=== PATIENT | female | born 1990 | race Two or more races ===

== ENCOUNTER 2021-08-17 16:24 | Emergency (ER) | payer OTHER ==
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
[2021-08-17] MEDS ORDERED: HYDROmorphone 1 MG/ML CARPUJECT IM STA (17:01)
--- NOTE | 2021-08-17 17:28 | XRAY Report ---
PROCEDURE: Ribs w/PA Chest RT INDICATIONS: posterior rib pain TECHNIQUE: 2 views of the right ribs were acquired, along with a single view chest. COMPARISON: None FINDINGS: Surgical changes and devices: None. Bones and chest wall: No fractures or dislocations. No suspicious bony lesions. Overlying soft tis sues appear unremarkable. Lungs and pleura: No pleural effusions or pneumothorax. Lungs appear clear. Mediastinum: Mediastinal contours appear normal. Heart size is normal. IMPRESSION: No displaced rib fracture. No acute cardiopulmonary disease process. Reviewed by: Samantha Dyson MD, PhD on 08/17/2021 4:27 PM AKDT Approved by: Samantha Dyson MD, PhD on 08/17/2021 4:27 PM AKDT Station ID: [id number]
[2021-08-17 18:01] VITALS: BP 108/66
== END 2021-08-17 18:02 | disposition home or self-care (01) ==
LOC: ED 16:24
DX: R07.81 Pleurodynia (principal); R07.89 Other chest pain; M54.6 Pain in thoracic spine; V43.52XA Car driver injured in collision with other type car in traffic accident, initial encounter; Y92.410 Unspecified street and highway as the place of occurrence of the external cause
CPT/HCPCS: 71101; 96372; 99283; 99284; J1170

== ENCOUNTER 2021-10-17 08:00 | Outpatient (CLI) | payer OTHER | END 2021-10-17 23:59 | LOC: LAB 08:00 | PROVIDERS: ATTEND Family Medicine | DX: R05.9 Cough, unspecified (principal); R50.9 Fever, unspecified; Z20.822 Contact with and (suspected) exposure to COVID-19 ==

== ENCOUNTER 2022-02-25 19:59 | Outpatient (CLI) | payer OTHER ==
--- NOTE | 2022-02-25 21:21 | XRAY Report ---
PROCEDURE: Knee 3 View RT INDICATIONS: RIGHT KNEE PAIN TECHNIQUE: 3 views of the right knee were acquired. COMPARISON: None. FINDINGS: Bones: No fractures or dislocations. Joint spaces appear preserved. No suspicious bony lesions. Soft tissues: There is a small joint effusion. No suspicious soft tissue calcifications. IMPRESSION: 1. No acute bony abnormality. 2. Small joint effusion. Reviewed by: Otoniel Angel MD on 02/25/2022 9:20 PM PDT Approved by: Otoniel Angel MD on 02/25/2022 9:20 PM PDT Station ID: [id number]
--- NOTE | 2022-02-25 21:22 | XRAY Report ---
PROCEDURE: Ankle 3 View LT INDICATIONS: LEFT ANKLE PAIN TECHNIQUE: 3 views of the ankle were acquired. COMPARISON: None. FINDINGS: Bones: No fractures or dislocations. Ankle mortise is normally aligned. No suspicious bony lesions . Soft tissues: No tibiotalar joint effusion. Achilles tendon appears intact. IMPRESSION: 1. No acute bony abnormality. Reviewed by: Otoniel Angel MD on 02/25/2022 9:21 PM PDT Approved by: Otoniel Angel MD on 02/25/2022 9:21 PM PDT Station ID: [id number]
== END 2022-02-25 20:00 | disposition home or self-care (01) ==
LOC: DI 19:59
PROVIDERS: ATTEND Family Medicine
DX: M25.561 Pain in right knee (principal); M25.572 Pain in left ankle and joints of left foot; M25.461 Effusion, right knee

== ENCOUNTER 2024-02-27 13:26 | Outpatient (CLI) | payer OTHER ==
--- NOTE | 2024-02-27 17:46 | Ultrasound Report ---
PROCEDURE: OB Anatomy Scan INDICATIONS: SUPERVISION OF OUTSIDE/PRIOR DATING DATA: Last menstrual period (LMP): 10/03/2023. LMP-based estimated date of delivery (PASCALE): 07/09/2024. First dating scan (date and location): 02/27/2024. Estimated date of delivery (PASCALE) from first dating scan: 07/09/2024. TECHNIQUE: Real-time scanning was performed of the fetus, with image documentation and biometric measurements. COMPARISON: None. FINDINGS: General: A single living intrauterine gestation is present. Presentation: Vertex Placenta: Placental position is posterior, placental edge is within 1 cm of the internal os. Amniotic fluid index: 13.6 cm, within normal limits for gestational age. heart rate: 166 beats per minute. Maternal cervical canal: 5.8 cm long; normal length is 2.5 cm or more. biometrics: Biparietal diameter: 5.03, 21 weeks and 2 days, 58.6% Head circumference: 19.17 cm, 21 weeks and 3 days, 59.9% Abdominal circumference: 17.64 cm, 22 weeks and 4 days, 87.4% Femur length: 3.6 cm, 21 weeks and 3 days, 55.7% Estimated gestational age from initial scan: 21 weeks Composite gestational age from present scan: 21 weeks and 4 days Estimated weight and percentile: 463 g, 89.7% Measurement variability in biometric dating: +/- 10 days from 12-20 weeks gestation, +/- 2 weeks from 20-30 weeks gestation, +/- 3 weeks at 30 weeks gestation or later. Anatomic survey: Neuro: Ventricles are normal at less than 10 mm. Cisterna magna is normal at 3-11 mm. Cerebellum is normal in size and morphology. Nuchal skin fold: Normal at less than 6 mm between 14 and 20 weeks gestational age. Face: Profile and nose/lips within normal limits Spine: No evidence for spina bifida. Heart: 4-chambered heart is present. LVOT is within normal limits. RVOT is not well seen on this sin gle imaging plane, although this is probably normal on cine Diaphragm: Diaphragm is intact. Stomach: Left-sided stomach is present. Kidneys: No hydronephrosis. Normal is less than 5 mm in 2nd trimester, less than 7 mm in 3rd trimester. Cord: 3 vessel cord has orthotopic insertion. Bladder: Normal in size. Extremities: All 4 extremities are visualized. IMPRESSION: Low lying placenta within 1 cm of the internal os. RVOT is not well seen on a single image, probably normal on the cine, Consider follow-up for the above findings. Living intrauterine gestation at 21 weeks. EFW is at the upper limit of normal at 90%. Reviewed by: Anirudh Shaw MD on 02/27/2024 5:45 PM PDT Approved by: Anirudh Shaw MD on 02/27/2024 5:45 PM PDT Station ID: [id number]
== END 2024-02-27 13:27 | disposition home or self-care (01) ==
LOC: DI 13:26
PROVIDERS: ATTEND Nurse Practitioner Obstetrics & Gynecology
DX: Z36.89 Encounter for other specified antenatal screening (principal); O44.42 Low lying placenta NOS or without hemorrhage, second trimester; Z3A.21 21 weeks gestation of pregnancy

== ENCOUNTER 2024-02-27 15:16 | Emergency (ER) | payer OTHER ==
[2024-02-27 15:38] VITALS: BP 101/58; O2SAT 100
--- NOTE | 2024-02-27 16:06 | ED Physician Documentation ---
History of Present Illness - Stated complaint Stated Complaint: 21WKS/LT RIB PX - Chief complaint Chief Complaint: Back Pain - History obtained from History obtained from: Patient - History of Present Illness Timing: Today Pain level max: 8 Pain level now: 8 - Additonal information Additional information: Patient is a 33-year-old female, 1, para 0, approximately 21 weeks who states that she was coughing today when she felt a pop in her left ribs. Now complaining of rib pain. Worse with movement, better with rest. No fevers. No chills. No vomiting. No diarrhea. No vaginal bleeding or discharge. She had a normal ultrasound reportedly just prior to arrival in the emergency department. Patient states she has not taken anything for the pain in the ribs. Review of Systems Constitutional: denies: Fever, Chills GI: denies: Nausea, Vomiting, Diarrhea : denies: Dysuria, Frequency, Hesitancy Skin: denies: Rash Musculoskeletal: denies: Neck pain, Back pain PD PAST MEDICAL HISTORY - Past Medical History Past Medical History: No - Past Surgical History Past Surgical History: No - Present Medications Home Medications: Ambulatory Orders Medication Instructions Recorded Confirmed HYDROcod/ACETAM 5/325 [[place] 5/325] 1 - 2 ea PO Q6H PRN #14 tablet 02/27/24 Levothyroxine [Synthroid] 25 mcg PO QDAC 02/27/24 02/27/24 Ondansetron HCl 4 mg PO Q4HR PRN 02/27/24 02/27/24 - Allergies Allergies/Adverse Reactions: Allergies Allergy/AdvReac Type Severity Reaction Status Date / Time No Known Drug Allergies Allergy Verified 02/27/24 15:36 - Social History Does the pt smoke?: No Smoking Status: Never smoker Does the pt drink ETOH?: No Does the pt have substance abuse?: No - Immunizations Immunizations are current?: No Immunizations: TDAP >10years/unknown PD ED PE NORMAL - Vitals Vital signs reviewed: Yes - General General: Alert and oriented X 3, No acute distress - HEENT HEENT: PERRL, Moist mucous membranes - Neck Neck: Supple, no meningeal sign - Cardiac Cardiac: RRR - Respiratory Respiratory: No respiratory distress, Clear bilaterally, Other (Tender palpation over the left posterior lateral rib, approximately 9 and 10. No crepitus. No ecchymosis. Otherwise atraumatic exam of the back and chest wall.) - Abdomen Abdomen: Soft, Non tender, Non distended - Derm Derm: Warm and dry - Neuro Neuro: Alert and oriented X 3 - Psych Psych: Normal mood, Normal affect Results - Vitals Vitals: Vital Signs - 24 hr 02/27/24 15:30 Temperature 36.9 C Heart Rate 69 Respiratory 15 Rate Blood Pressure 101/58 L O2 Saturation 100 Oxygen O2 Source Room air PD Medical Decision Making - ED course Complexity details: considered differential, d/w patient ED course: 33-year-old female with left rib pain after coughing. She is approximately 21 weeks , therefore no imaging was performed. No evidence of pneumothorax. Will prescribe pain medication for home. She is well-appearing, nontoxic. Afebrile. Abdomen is soft, nontender nondistended. She just had a normal ultrasound prior to checking into the emergency department. No indication to repeat this at this time. No indication for laboratory testing. No vomiting. No diarrhea. No urinary symptoms. Patient counseled regarding signs and symptoms for which I believe and urgent re-evaluation would be necessary. Patient with good understanding of and agreement to plan and is comfortable going home at this time This document was made in part using voice recognition software. While efforts are made to proofread this document, sound alike and grammatical errors may occur. Departure - Departure Disposition: 01 Home, Self Care Clinical Impression: Rib pain on left side Condition: Good Instructions: ED Contusion Vs Minor Fx Rib Follow-Up: your,doctor in 1 week [Other] - Within 1 week Prescriptions: HYDROcod/ACETAM 5/325 [[place] 5/325] 1 - 2 ea PO Q6H PRN #14 tablet PRN Reason: Pain Comments: As we discussed it is likely that you have a small cracked rib from the coughing. A prescription was sent to [facility] in [place] for pain. Please follow-up with your OB for further care. Please return if you worsen. This may take several weeks to fully heal I am prescribing a short course of narcotic pain medication for you. These are potentially dangerous and addictive medications that should be used carefully. These medications may constipate you. Take an cwve-xjv-icqekjc stool softener (docusate) twice daily with plenty of water while taking these medications. If you go 24 hours without a bowel movement, take dgmv-ano-sxbfroe miralax, per package instructions. Do not drink or drive while taking these medications. If you received narcotic or sedating medications while in the emergency department, do not drive for 24 hours. Store this medication in a safe, secure place and out of reach of children. It is a violation of federal law to give or sell this medication to another person or to use in a manner other than prescribed. The ED will not refill narcotic prescriptions, including prescriptions lost or stolen. To dispose of unwanted medications: 1. [facility] at [address] in [place] has a medication drop box. They accept prescription medications (in pill form) Saturday through Saturday 9:00 a.m. to 5:00 p.m. 2. [facility] [employer] accepts prescription medications (in pill form only) for disposal year round. Call for more information. 3. Contact the [facility] for the next [facility] sponsored prescription drug collection event. , [phone], or [phone]; Discharge Date/Time: 02/27/24 16:22
[2024-02-27] MEDS: HYDROcod/ACETAM 5/325 MG TABLET PO STA (16:10)
== END 2024-02-27 16:22 | disposition home or self-care (01) ==
LOC: ED 15:16
DX: O99.891 Other specified diseases and conditions complicating pregnancy (principal); R05.9 Cough, unspecified; R07.81 Pleurodynia; Z3A.21 21 weeks gestation of pregnancy; O44.42 Low lying placenta NOS or without hemorrhage, second trimester; Z36.89 Encounter for other specified antenatal screening
CPT/HCPCS: 76811; 99283; A9270

== ENCOUNTER 2024-04-01 10:21 | Outpatient (CLI) | payer OTHER ==
[2024-04-01 11:37] LABS: HCT - HEMATOCRIT 32.1 % (37.0-47.0); HGB - HEMOGLOBIN 10.3 g/dL (12.0-16.0); MEAN CORPUSCULAR HEMOGLOBIN 30.8 pg (27.0-31.0); MEAN CORPUSCULAR HGB CONC 32.1 g/dL (32.0-36.0); MEAN CORPUSCULAR VOLUME 96.1 fL (81.0-99.0); RED BLOOD COUNT 3.34 10^6/uL (4.20-5.40); WHITE BLOOD COUNT 8.8 x10^3/uL (4.8-10.8)
[2024-04-01 12:07] LABS: THYROID STIMULATING HORMONE 0.69 uIU/mL (0.34-5.60)
== END 2024-04-01 10:22 | disposition home or self-care (01) ==
LOC: LAB 10:21
PROVIDERS: ATTEND Nurse Practitioner Obstetrics & Gynecology
DX: O99.280 Endocrine, nutritional and metabolic diseases complicating pregnancy, unspecified trimester (principal); Z36.9 Encounter for antenatal screening, unspecified
CPT/HCPCS: 36415; 82950; 84439; 84443; 85027

== ENCOUNTER 2024-04-06 08:08 | Outpatient (CLI) | payer OTHER ==
[2024-04-06 09:21] LABS: GTT GLUCOSE,FASTING 89 mg/dL (74-109)
== END 2024-04-06 08:09 | disposition home or self-care (01) ==
LOC: LAB 08:08
PROVIDERS: ATTEND Nurse Practitioner Obstetrics & Gynecology
DX: O99.810 Abnormal glucose complicating pregnancy (principal)
CPT/HCPCS: 36415; 82951; 82952

== ENCOUNTER 2024-05-05 13:29 | Outpatient (CLI) | payer OTHER ==
--- NOTE | 2024-05-05 22:23 | Ultrasound Report ---
PROCEDURE: OB Follow up INDICATIONS: LOW LYING PLACENTA OUTSIDE/PRIOR DATING DATA: Last menstrual period (LMP): 10/03/2023. LMP-based estimated date of delivery (PASCALE): 07/09/2024. First dating scan (date and location): 02/27/2024. Estimated date of delivery (PASCALE) from first dating scan: 07/09/2024. The below data below was generated using the ultrasound PASCALE of 07/09/2024 TECHNIQUE: Real-time scanning was performed of the fetus, with image documentation and biometric measurements. Endovaginal scanning: Not performed. COMPARISON: OB ultrasound 02/27/2024 FINDINGS: General: A single living intrauterine gestation is present. Presentation: Vertex Placenta: Placental position is posterior, without previa. Placenta measures 8 cm from the os liam red to 1 cm on prior exam. Amniotic fluid index: 12.9 cm, within normal limits for gestational age. heart rate: 166 beats per minute. Maternal cervical canal: 3.5 cm long; normal length is 2.5 cm or more. biometrics: Estimated gestational age from initial scan: 30 weeks 5 days Other: Not applicable. IMPRESSION: Single live anterior with gestational age of 30 weeks 5 days. Posterior placenta measures 8 cm from the os. Reviewed by: Baylee Watson MD on 05/05/2024 10:22 PM PDT Approved by: Baylee Watson MD on 05/05/2024 10:22 PM PDT Station ID: [id number]
== END 2024-05-05 13:30 | disposition home or self-care (01) ==
LOC: DI 13:29
PROVIDERS: ATTEND Nurse Practitioner Obstetrics & Gynecology
DX: O44.43 Low lying placenta NOS or without hemorrhage, third trimester (principal); Z3A.30 30 weeks gestation of pregnancy

== ENCOUNTER 2024-07-20 00:22 | Inpatient (IN) ==
[2024-07-20] MEDS ORDERED: METHYLERGONOVINE 0.2 MG/ML VIAL IM PRN (00:39)
[2024-07-20] MEDS ORDERED: OXYTOCIN/SODIUM CHLORIDE 500 ML IV PRN (00:39)
[2024-07-20] MEDS ORDERED: TERBUTALINE 1 MG/ML VIAL SUBQ PRN (00:39)
[2024-07-20] MEDS ORDERED: miSOPROStoL 200 MCG TABLET BC PRN (00:39)
[2024-07-20] MEDS ORDERED: OXYTOCIN 10 UNIT/ML VIAL IM PRN (00:39)
[2024-07-20] MEDS ORDERED: fentaNYL 100 MCG/2 ML VIAL IVP PRN (00:39)
[2024-07-20] MEDS ORDERED: TRANEXAMIC ACID IN NACL 1,000 MG/100 ML BAG IV PRN (00:39)
[2024-07-20] MEDS ORDERED: miSOPROStoL 200 MCG TABLET PR PRN (00:39)
[2024-07-20] MEDS ORDERED: LACTATED RINGERS 1,000 ML IV PRN (00:39)
[2024-07-20] MEDS ORDERED: LABETALOL 20 MG/4 ML SYRINGE IVP PRN ×3 (00:39)
[2024-07-20] MEDS ORDERED: CARBOPROST TROMETHAMINE 250 MCG/ML VIAL IM PRN (00:39)
[2024-07-20] MEDS ORDERED: NIFEdipine 10 MG CAPSULE PO PRN (00:39)
[2024-07-20] MEDS ORDERED: hydrALAZINE INJ 20 MG/ML VIAL IVP PRN (00:39)
[2024-07-20] MEDS ORDERED: SODIUM CHLORIDE FLUSH 0.9% 10 ML SYRINGE IVP PRN (00:39)
[2024-07-20] MEDS ORDERED: SODIUM CHLORIDE FLUSH 0.9% 10 ML SYRINGE IVP SCH (01:00)
[2024-07-20] MEDS ORDERED: LACTATED RINGERS 1,000 ML IV SCH (01:00)
[2024-07-20 01:44] LABS: BASOPHILS # (AUTO) 0.1 10^3/uL (0.0-0.1); BASOPHILS % (AUTO) 0.3 %; EOSINOPHILS % (AUTO) 0.1 %; HCT - HEMATOCRIT 34.4 % (37.0-47.0); HGB - HEMOGLOBIN 11.1 g/dL (12.0-16.0); LYMPHOCYTES # (AUTO) 0.9 10^3/uL (1.5-3.5); LYMPHOCYTES % (AUTO) 4.4 %; MEAN CORPUSCULAR HEMOGLOBIN 27.9 pg (27.0-31.0); MEAN CORPUSCULAR HGB CONC 32.3 g/dL (32.0-36.0); MEAN CORPUSCULAR VOLUME 86.4 fL (81.0-99.0); MEAN PLATELET VOLUME 11.3 fL (7.9-10.8); MONOCYTES # (AUTO) 0.3 10^3/uL (0.0-1.0); MONOCYTES % (AUTO) 1.6 %; NEUTROPHILS # (AUTO) 18.6 10^3/uL (1.5-6.6); PLT - PLATELET COUNT 221 10^3/uL (130-450); RED BLOOD COUNT 3.98 10^6/uL (4.20-5.40); RED CELL DISTRIBUTION WIDTH 13.2 % (12.0-15.0)
[2024-07-20] MEDS: lidocaine 1% 20 ML MDV ID PRN (04:57)
[2024-07-20] MEDS: fentaNYL 100 MCG/2 ML VIAL IVP PRN (04:58)
[2024-07-20] MEDS ORDERED: SIMETHICONE CHEW 80 MG TABLET PO PRN (05:20)
[2024-07-20] MEDS ORDERED: WITCH HAZEL/GLYCERIN 1 PAD TOP PRN (05:20)
[2024-07-20] MEDS ORDERED: HYDROCORTISONE 1% CREAM 28 GM TUBE TOP PRN (05:20)
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
[2024-07-20] MEDS: OXYTOCIN/SODIUM CHLORIDE 500 ML IV PRN (05:53)
--- NOTE | 2024-07-20 06:01 | DELIVERY NOTE ---
Delivery Note Delivery Comments (Free Text/Narrative) Delivery Comments (Free Text/Narrative): Anisha is a 33yo @ 41.4wks gestation by LMP c/w 10.5wk U/S who presented to [facility] in active labor. Upon arrival she was found to have grossly ruptured membranes and clear fluid which occurred at home 07/20/2024 at 0009, and to contract every 2-4 minutes with soft resting tone. SVE was deferred initially per pt request. FHR demonstrated Category I pattern throughout labor with intermittent periods of Category II during the second stage of labor however overall remained reassuring. Normal labor course. She labored spontaneously and progressed to c/c/+ at 0210 with onset of consistent, spontaneous active pushing and marked onset of second stage at 0243. : Normal SVB of viable male on 07/20/2024 @ 0424. No nuchal cord. The was placed on maternal abdomen, stimulated, dried, and placed skin to skin. Apgars were 8/8 at 1 and 5 minutes respectively. Pt declined pitocin for active management of the third stage. The umbilical cord was allowed to stop pulsating at which time it was doubly clamped by CNM and cut by partner. 3VC. Cord blood was obtained. Fundal massage and gentle cord traction applied for active management of the third stage of labor. Placenta delivered spontaneously and intact at 0441. QBL 794mL. Fourth stage: Uterine fundus firm and there is no excessive bleeding. The perineum, vagina, and cervix were inspected and found to have a 1st degree perineal laceration which repaired using a 3-[address]-1 needle in standard fashion and under sterile conditions. Vaginal examination following repair was performed. Tissues well approximated. Skin to skin contact maintained. Family bonding well. Both mother and baby were left in stable condition.
[2024-07-20] MEDS: ACETAMINOPHEN 500 MG TABLET PO PRN (06:21)
[2024-07-20] MEDS: IBUPROFEN 800 MG TABLET PO PRN (07:54)
[2024-07-20] MEDS: DOCUSATE SODIUM 100 MG CAPSULE PO SCH (08:02)
[2024-07-21] MEDS: LEVOTHYROXINE 25 MCG TABLET PO SCH (07:14)
--- NOTE | 2024-07-21 09:52 | Discharge Summary ---
Discharge Summary Admit Date: 07/20/24 Discharge Date: 07/21/24 Discharging Provider: Keeley Rodriguez CNM/EZEQUIEL Code Status: Attempt Resuscitation HOSPITAL COURSE Hospital Course: Diagnosis on Admission: 1. 33yo @ 41.4wks gestation by LMP c/w 10.5wk U/S 2. Active Labor 3. GBS negative 4. FHR Category I 5. Advanced Maternal Age Diagnosis on Discharge: 1. 33yo PPD#1 s/p TSVD viable male infant 2. Perineum intact 3. 4. Normal Recovery Brief History: She is a patient of [facility] who presented on 07/20/2024 in active labor and with grossly ruptured membranes and clear fluid. She was found to contract every 2-4 minutes and FHR baseline was in a Category I pattern throughout labor. Normal labor course. She progressed spontaneously and unmedicated to deliver a viable male on 07/20/2024 @ 0424 over 1st degree perineal laceration. QBL 794mL. Apgars were 8/8 at 1 and 5 minutes respectively. She has been doing well in her course. She is ambulating and tolerating a regular diet. She is urinating without difficulty and her lochia is normal. Her pain is well controlled with oral medications. She is without difficulty and she is bonding well with her baby. She will be discharged home today on day #1 with instructions to continue taking her vitamin while and to continue taking ibuprofen and tylenol over the counter as needed for pain management. She intends to follow up with myself at [facility] in 1 week for routine visit or sooner if needed. She has been given precautions to call if she has any worsening fevers, chills, abdomin pain, increased vaginal bleeding or foul smelling vaginal lochia. Physical exam: Normocephalica, atraumatic. Heart RRR w/o M/G/R, lungs CTAB, abdomen soft and nontender, fundus firm at U, perineum intact, light lochia rubra. Bilateral LE's no edema. Mood is good. ALLERGIES Allergies Allergy/AdvReac Type Severity Reaction Status Date / Time No Known Drug Allergies Allergy Verified 02/27/24 15:36 LABS 07/20/24 01:30 Discharge Plan Discharge Patient Disposition: 06 Home Health Service Prescriptions: Discontinued ondansetron HCl 4 MG tablet 4 mg PO Q4HR PRN (Reason: Nausea / Vomiting) levothyroxine 25 MCG tablet 25 mcg PO QDAC hydrocodone-acetaminophen 1 TAB tablet 1 - 2 ea PO Q6H PRN (Reason: Pain) Qty: 14 0RF Print Language: Danish Patient Instructions: Vaginal After, Nutrition , Self Care Follow-up Care: Keeley Rodriguez CNM, SALES PROPERTY MANAGER [Provider Admit Priv/Credential] -
--- NOTE | 2024-07-21 11:27 | Labor Flowsheet ---
Labor Flowsheet Datetime Report Generated by CPN: 07/21/2024 11:27 Datetime: 07/21/2024 08:18 VITAL SIGNS NBP Sys/Rachael/Mean (mmHg): 107 : 54 : 67 Pulse: 87 Datetime: 07/20/2024 05:45 Temperature (C): 37.1 Datetime: 07/20/2024 04:24 Stage of : Datetime: 07/20/2024 04:17 Comments: 172 Datetime: 07/20/2024 04:00 UTERINE ACTIVITY Monitor Mode: External Frequency (min): 2-3 Quality: Strong Duration (sec): 80-120 Pattern: Normal: <= 5 Contractions in 10 Minutes Resting Tone (Palpate): Relaxed ASSESSMENT A Monitor Mode: Telemetry FHR Baseline Changes: Tachycardia Variability: Moderate 6-25 bpm Accelerations: None Decelerations: Variable Datetime: 07/20/2024 03:54 PATIENT CARE Patient Position/Activity: Left Lateral Datetime: 07/20/2024 03:38 Stage 2 Comments: presenting part with pushing Datetime: 07/20/2024 03:35 Monitor Interventions for UA: [place] Adjusted Datetime: 07/20/2024 03:33 Patient Care Comments: hands and knees Datetime: 07/20/2024 03:30 FHR Baseline Rate : 150 Category: Category II Datetime: 07/20/2024 03:00 LaborFlag: Labor Datetime: 07/20/2024 02:55 Actions for Decelerations: Side to Side Datetime: 07/20/2024 02:43 COMMUNICATION Communication Comments: CNM declines type and screen draw at this time d/t pushing Datetime: 07/20/2024 02:17 STAGE 2 Pushing: Involuntary Pushing Datetime: 07/20/2024 01:00 VAGINAL EXAM Membrane Status: Ruptured Membranes Ruptured Date/Time: 07/20/2024 00:09 Membranes Rupture Method: Spontaneous Amniotic Fluid Color: Clear MATERNAL ASSESSMENT Level of Consciousness: Alert Headache: Denies TEACHING Plan of Care: Plan of Care Discussed; Labor Unit Routine: [place] to Room; Call Moe; Bed Datetime: 07/20/2024 00:56 I/O Interventions: Up to BR Datetime: 07/20/2024 00:48 SpO2 (%): 100
[2024-07-22 09:14] VITALS: O2SAT 99
--- NOTE | 2024-07-22 11:39 | Discharge Summary ---
Discharge Summary Admit Date: 07/20/24 Discharge Date: 07/22/24 Discharging Provider: Keeley Rodriguez CNM/EZEQUIEL Code Status: Attempt Resuscitation HOSPITAL COURSE Hospital Course: Diagnosis on Admission: 1. 33yo @ 41.4wks gestation by LMP c/w 10.5wk U/S 2. Active Labor 3. GBS negative 4. FHR Category I 5. Advanced Maternal Age Diagnosis on Discharge: 1. 33yo PPD21 s/p TSVD viable male infant 2. Perineum intact 3. 4. Normal Recovery Brief History: She is a patient of [facility] [place] who presented on 07/20/2024 in active labor and with grossly ruptured membranes and clear fluid. She was found to contract every 2-4 minutes and FHR baseline was in a Category I pattern throughout labor. Normal labor course. She progressed spontaneously and unmedicated to deliver a viable male on 07/20/2024 @ 0424 over 1st degree perineal laceration. QBL 794mL. Apgars were 8/8 at 1 and 5 minutes respectively. She intended initiatially to discharge home yesterday however secondary to her baby's discharge being held and addition support needed with she elected to stay in patient. She has been doing well in her course. She is ambulating and tolerating a regular diet. She is urinating without difficulty and her lochia is normal. Her pain is well controlled with oral medications. She is without difficulty today and she is bonding well with her baby. She will be discharged home today on day #2 with instructions to continue taking her vitamin while and to continue taking ibuprofen and tylenol over the counter as needed for pain management. She intends to follow up with myself at [facility] [place] in 1 week for routine visit or sooner if needed. She has been given precautions to call if she has any worsening fevers, chills, abdomin pain, increased vaginal bleeding or foul smelling vaginal lochia. Physical exam: Normocephalica, atraumatic. Heart RRR w/o M/G/R, lungs CTAB, abdomen soft and nontender, fundus firm at U-1, perineum intact, light lochia rubra. Bilateral LE's no edema. Mood is good. ALLERGIES Allergies Allergy/AdvReac Type Severity Reaction Status Date / Time No Known Drug Allergies Allergy Verified 02/27/24 15:36 LABS 07/20/24 01:30 FOLLOW UP Follow Up: Keeley Rodriguez CNM/EZEQUIEL in 1 week via telehealth visit at [facility] [place] or sooner PRN. Discharge Plan Discharge Patient Disposition: Home, Self Care Prescriptions: Discontinued ondansetron HCl 4 MG tablet 4 mg PO Q4HR PRN (Reason: Nausea / Vomiting) levothyroxine 25 MCG tablet 25 mcg PO QDAC hydrocodone-acetaminophen 1 TAB tablet 1 - 2 ea PO Q6H PRN (Reason: Pain) Qty: 14 0RF Activity Restrictions: No Restrictions Diet: Regular Print Language: Czech Patient Instructions: Vaginal After, Nutrition , Self Care Follow-up Care: Keeley Rodriguez CNM, ARNP [Provider Admit Priv/Credential] -
--- NOTE | 2024-07-22 11:44 | Discharge Summary ---
Discharge Summary ALLERGIES Allergies Allergy/AdvReac Type Severity Reaction Status Date / Time No Known Drug Allergies Allergy Verified 02/27/24 15:36 LABS 07/20/24 01:30 Discharge Plan Discharge Patient Disposition: 01 Home, Self Care Prescriptions: Discontinued ondansetron HCl 4 MG tablet 4 mg PO Q4HR PRN (Reason: Nausea / Vomiting) levothyroxine 25 MCG tablet 25 mcg PO QDAC hydrocodone-acetaminophen 1 TAB tablet 1 - 2 ea PO Q6H PRN (Reason: Pain) Qty: 14 0RF Activity Restrictions: No Restrictions Diet: Regular Print Language: Bulgarian Patient Instructions: Vaginal After, Nutrition , Self Care Follow-up Care: Keeley Rodriguez CNM, [employer]OK[employer] PURCHASE AND SALE CLERK [Provider Admit Priv/Credential] -
--- NOTE | 2024-07-22 14:47 | Labor Flowsheet ---
Labor Flowsheet Datetime Report Generated by CPN: 07/22/2024 14:47 Datetime: 07/22/2024 09:07 VITAL SIGNS NBP Sys/Rachael/Mean (mmHg): 112 : 63 : 75 Pulse: 92 Datetime: 07/21/2024 15:38 SpO2 (%): 95 Datetime: 07/20/2024 05:45 Temperature (C): 37.1 Datetime: 07/20/2024 04:24 Stage of : Datetime: 07/20/2024 04:17 Comments: 172 Datetime: 07/20/2024 04:00 UTERINE ACTIVITY Monitor Mode: External Frequency (min): 2-3 Quality: Strong Duration (sec): 80-120 Pattern: Normal: <= 5 Contractions in 10 Minutes Resting Tone (Palpate): Relaxed ASSESSMENT A Monitor Mode: Telemetry FHR Baseline Changes: Tachycardia Variability: Moderate 6-25 bpm Accelerations: None Decelerations: Variable Datetime: 07/20/2024 03:54 PATIENT CARE Patient Position/Activity: Left Lateral Datetime: 07/20/2024 03:38 Stage 2 Comments: presenting part with pushing Datetime: 07/20/2024 03:35 Monitor Interventions for UA: [place] Adjusted Datetime: 07/20/2024 03:33 Patient Care Comments: hands and knees Datetime: 07/20/2024 03:30 FHR Baseline Rate : 150 Category: Category II Datetime: 07/20/2024 03:00 LaborFlag: Labor Datetime: 07/20/2024 02:55 Actions for Decelerations: Side to Side Datetime: 07/20/2024 02:43 COMMUNICATION Communication Comments: CNM declines type and screen draw at this time d/t pushing Datetime: 07/20/2024 02:17 STAGE 2 Pushing: Involuntary Pushing Datetime: 07/20/2024 01:00 VAGINAL EXAM Membrane Status: Ruptured Membranes Ruptured Date/Time: 07/20/2024 00:09 Membranes Rupture Method: Spontaneous Amniotic Fluid Color: Clear MATERNAL ASSESSMENT Level of Consciousness: Alert Headache: Denies TEACHING Plan of Care: Plan of Care Discussed; Labor Unit Routine: [place] to Room; Call Moe; Bed Datetime: 07/20/2024 00:56 I/O Interventions: Up to BR
== END 2024-07-22 14:35 | disposition home or self-care (01) ==
LOC: WFO 00:22 → FBP 00:25 → UNDODISIN 07-21 11:26
PROVIDERS: ADMIT Nurse Practitioner Obstetrics & Gynecology; ATTEND Nurse Practitioner Obstetrics & Gynecology